=== PATIENT | female | born 1975 | race Caucasian/White ===

== ENCOUNTER 2017-07-12 04:41 | Emergency (ER) | payer OTHER ==
[~2017-07-12] VITALS: Ht 152.4 cm; Wt 65.3 kg
[~2017-07-12 04:41] MED LIST: AMOXICILLIN500 MG PO; PERCOCET 5/31 TABLET PO; ZOFRAN4 MG PO
[2017-07-12 06:10] LABS: BASOPHIL COUNT 0.1 K/uL (0-0.1); EOSINOPHIL (%) 1.6 % (0-5); EOSINOPHIL COUNT 0.1 K/uL (0-0.3); HEMATOCRIT 33.6 % (36.0-46.0); IMMATURE GRANULOCYTE (%) 0.4 % (0.0-0.7); INSTRUMENT ABS NEUTROPHIL CT 4.3 K/uL; LYMPHOCYTE COUNT 1.7 K/uL (1.0-2.8); MCH 26.7 PG (29.0-34.0); MCHC 32.4 G/DL (30.0-36.0); MCV 82.4 FL (83-99); MONOCYTE (%) 9.6 % (3-12); MONOCYTE COUNT 0.7 K/uL (0-0.8); NEUTROPHIL (%) 62.9 % (45-76); NEUTROPHIL COUNT 4.3 K/uL (1.8-6.4); PLATELET COUNT 348 K/uL (156-360); RBC DIS.WIDTH-CV 14.9 % (11.8-14.6); RBC DIS.WIDTH-SD 44.9 % (39-53); RED BLOOD COUNT 4.08 M/uL (3.80-5.20); WHITE BLOOD COUNT 6.9 K/uL (4.1-10.2)
[2017-07-12 06:21] LABS: CHLORIDE 109 mEq/L (99-109); POTASSIUM 4.5 mEq/L (3.7-5.4); SODIUM 139 mEq/L (136-147)
[2017-07-12 06:23] LABS: GLUCOSE 90 mg/dL (70-99)
[2017-07-12 06:24] LABS: ANION GAP 7 MEQ/L (2-14)
[2017-07-12 06:27] LABS: GFR ESTIMATE (CALCULATED) > 59 mL/min/
[2017-07-12 06:28] LABS: UREA NITROGEN (BUN) 10 mg/dL (9-23)
[2017-07-12 06:35] LABS: QUANTITATIVE HCG < 4.0 MIU/ML
[2017-07-12 07:15] LABS: ADD MIUA? YES; BILIRUBIN NEGATIVE; BLOOD NEGATIVE; COLOR STRAW ((YELLOW)); GLUCOSE (STRIP) NEGATIVE; KETONES NEGATIVE; LEUKOCYTES NEGATIVE; NITRITE NEGATIVE; PROTEIN (STRIP) NEGATIVE; SPECIFIC GRAVITY 1.008 (1.000-1.030); UROBILINOGEN 0.2 MG/DL (0.2-1.0)
[2017-07-12 07:32] LABS: BACTERIA RARE /HPF; EPITHELIAL CELLS 2+ /HPF; MUCUS NONE SEEN /LPF; RED BLOOD CELLS NONE SEEN /HPF (0-5); UCUL ADDED? NO; WHITE BLOOD CELLS 0-5 /HPF (0-5)
[2017-07-12] MEDS ORDERED: PERCOCET 10/1 TABLET PO (09:56)
[2017-07-12 10:15] VITALS: BP 117/93
== END 2017-07-12 10:25 | disposition home or self-care (01) ==
LOC: EME 04:41
PROVIDERS: Emergency Medicine
DX: N83.292 Other ovarian cyst, left side (principal); N83.291 Other ovarian cyst, right side; Z98.890 Other specified postprocedural states
CPT/HCPCS: 74176; 76856; 80048; 81003; 84702; 85025; 99281; 99283; J2270; J2405; J7030

== ENCOUNTER 2017-09-11 09:57 | Day surgery (SDC) | payer OTHER ==
[~2017-09-11] VITALS: Ht 152.4 cm; Wt 63.5 kg
[~2017-09-11 09:57] MED LIST changes: +DULCOLAX5 MG PO; +IRON325 M1 PO; +PERCOCET 10/1 TABLET PO
[2017-09-11 10:44] VITALS: BP 114/79
[2017-09-11] MEDS ORDERED: IBUPROFEN800 MG PO (15:53)
[2017-09-11] MEDS ORDERED: ENDOCET 5-3251 EACH PO (15:53)
[2017-09-11 17:35] VITALS: BP 119/69
[2017-09-11 18:40] VITALS: BP 126/66
[2017-09-11 19:18] LABS: EOSINOPHIL (%) 0 % (0-5); HEMATOCRIT 35.6 % (36.0-46.0); IMMATURE GRANULOCYTE (%) 0.8 % (0.0-0.7); IMMATURE GRANULOCYTE COUNT 0.1 K/uL; INSTRUMENT ABS NEUTROPHIL CT 13.8 K/uL; LYMPHOCYTE COUNT 0.7 K/uL (1.0-2.8); MCH 28.5 PG (29.0-34.0); MCHC 32.6 G/DL (30.0-36.0); MCV 87.5 FL (83-99); MEAN PLAT.VOLUME 9.2 uM^3 (9.5-12.4); MONOCYTE (%) 4.1 % (3-12); MONOCYTE COUNT 0.6 K/uL (0-0.8); NEUTROPHIL (%) 90.2 % (45-76); NEUTROPHIL COUNT 13.8 K/uL (1.8-6.4); PLATELET COUNT 298 K/uL (156-360); RBC DIS.WIDTH-CV 16.3 % (11.8-14.6); RBC DIS.WIDTH-SD 52.6 % (39-53); RED BLOOD COUNT 4.07 M/uL (3.80-5.20); WHITE BLOOD COUNT 15.3 K/uL (4.1-10.2)
[2017-09-11 19:32] VITALS: BP 116/67
== END 2017-09-11 20:00 | disposition home or self-care (01) ==
LOC: SDC 09:57
PROVIDERS: Obstetrics & Gynecology
PROC: 0UDB8ZX Extraction of Endometrium, Via Natural or Artificial Opening Endoscopic, Diagnostic (ICD-10-PCS; principal; 2017-09-11)
PROC: 0DQN4ZZ Repair Sigmoid Colon, Percutaneous Endoscopic Approach (ICD-10-PCS; principal; 2017-09-11)
PROC: 0UB24ZZ Excision of Bilateral Ovaries, Percutaneous Endoscopic Approach (ICD-10-PCS; principal; 2017-09-11)
DX: N83.202 Unspecified ovarian cyst, left side (principal); N83.201 Unspecified ovarian cyst, right side; N80.1 Endometriosis of ovary; K91.72 Accidental puncture and laceration of a digestive system organ or structure during other procedure; N73.6 Female pelvic peritoneal adhesions (postinfective); R93.8 Abnormal findings on diagnostic imaging of other specified body structures; D64.9 Anemia, unspecified; K59.00 Constipation, unspecified; Z88.2 Allergy status to sulfonamides
CPT/HCPCS: 85025; 88305; J0131; J1100; J1170; J1885; J2250; J2405; J2710; J3010; J7120